=== PATIENT | female | born 1990 | race Two or more races ===

== ENCOUNTER 2017-01-18 15:41 | Emergency (ER) | payer SELFPAY ==
[2017-01-18] MEDS ORDERED: MAALOX/LIDO2%VISC/SIMETHICONE 40 ML BOT ONE (16:14)
--- NOTE | 2017-01-18 17:27 | RAD ---
CHEST 2 VIEWS HISTORY: Epigastric pain. Frontal and lateral chest radiographs dated 01/18/2017. COMPARISON: None. FINDINGS: FOCAL AIRSPACE OPACITY: Minor patchy density of the right upper lung field. PLEURAL EFFUSION: None. CARDIOMEDIASTINAL SILHOUETTE: Nonenlarged. PNEUMOTHORAX: None identified. OSSEOUS STRUCTURES: No grossly destructive lesions. IMPRESSION: Subtle density of the right upper lung field, infiltrate and atelectasis are possible P
[2017-01-18 17:28] LABS: ABSOLUTE NEUTROPHIL COUNT 10.4 K/mm3 (1.8-7.7); BASO % 0.2 % (0.2-1.0); EOS # 0.4 (0.0-0.5); EOS % 3.1 % (0.9-2.9); HEMATOCRIT 32.2 % (37.0-47.0); HEMOGLOBIN 10.6 gm/l (12.0-16.0); IMM NEUT% 0.3 % (0-1); LYMPH # 1.7 (1.0-4.8); LYMPH % 12.8 % (15-45); MEAN CELL VOLUME 82.4 fl (81.0-99.0); MEAN CORPUSCULAR HEMOGLOBIN 27.1 pg (27.0-31.0); MEAN CORPUSCULAR HGB CONC 32.9 g/dl (33.0-37.0); MEAN PLATELET VOLUME 11.2 fl (7.4-10.4); MONO # 0.6 (0.0-0.8); MONO % 4.3 % (4-12); NEUT % 79.3 % (43-75); PLATELET COUNT 294 K/mm3 (130-400); RED CELL DISTRIBUTION WIDTH 13.8 % (11.5-14.5)
[2017-01-18 17:40] LABS: ALB/GLOB RATIO 1.1 (>1.0); ALBUMIN 3.7 gm/dL (3.5-5.7); CALCIUM 8.8 mg/dL (8.6-10.3)
[2017-01-18 17:41] LABS: URINE BILIRUBIN NEGATIVE (NEGATIVE); URINE BLOOD TRACE (NEGATIVE); URINE GLUCOSE (UA) NEGATIVE (NEGATIVE); URINE LEUKOCYTE ESTERASE TRACE (NEGATIVE); URINE NITRITE NEGATIVE (NEGATIVE); URINE PROTEIN TRACE (NEGATIVE); URINE UROBILINOGEN 1 mg/dL (0-1 mg/dl)
[2017-01-18 17:42] LABS: URINE APPEARANCE CLEAR; URINE COLOR YELLOW
[2017-01-18 17:43] LABS: HCG,QUALITATIVE URINE NEGATIVE
[2017-01-18 18:02] LABS: URINE RBC 0-2 /hpf
[2017-01-18 18:03] LABS: URINE BACTERIA 1+; URINE MUCUS 1+; URINE WBC 0-2 /hpf
[2017-01-19 14:43] LABS: CHLAMYDIA BD Negative (Negative); N.GONORRHOEAE BD Negative (Negative); SOURCE Urine (())
== END 2017-01-18 19:02 | disposition home or self-care (01) ==
LOC: ED 15:41
DX: R10.13 Epigastric pain (principal)